=== PATIENT | male | born 1980 | race Caucasian/White ===

== ENCOUNTER 2017-08-03 11:07 | Emergency (ER) | payer MEDICAID ==
[~2017-08-03] VITALS: Ht 167.6 cm; Wt 71.7 kg
[~2017-08-03 11:07] MED LIST: COLACE100 MG PO; NOR10T PO; TASIGNA150 MG; TASIGNA150 MG PO
[2017-08-03 11:12] VITALS: Ht 167.6 cm; Wt 71.7 kg
[2017-08-03 12:43] LABS: PLATELET COUNT 99 x10^3mcL (130-400); RED CELL DISTRIBUTION WIDTH 16.9 % (11.5-14.5)
[2017-08-03 13:14] LABS: BAND NEUTROPHIL 27 % (0-10); BASOPHIL 0 % (0-2); BLAST 5 % (0); METAMYELOCTE 15 % (0-2); MONOCYTE 4 % (0-7); MYELOCYTE 6 % (0-2); SEGMENTED NEUTROPHILS 35 % (37-75)
[2017-08-03 13:16] LABS: PLATELET MORPHOLOGY PLATELETS DECREASED; rbc morphology (normal/abnorm) ABNORMAL (NORMAL)
[2017-08-03 13:19] VITALS: BP 164/98
[2017-08-03 15:04] LABS: CALCIUM 8.8 mg/dL (8.5-10.1); CARBON DIOXIDE 21.6 mmol/L (21-32); CHLORIDE SERUM 102 mmol/L (98-107); CREATININE SERUM 0.9 mg/dL (0.7-1.3); GFR1 > 60 mL/min; GLUCOSE SERUM 106 mg/dL (74-106); POTASSIUM SERUM 3.9 mmol/L (3.5-5.1); SODIUM SERUM 139 mmol/L (136-145)
[2017-08-03 15:19] LABS: ALBUMIN 4.1 g/dL (3.4-5.0); ALKALINE PHOSPHATASE 84 U/L (46-116); ALT/SGPT 60 U/L (16-63); AST/SGOT 86 U/L (15-37); BILIRUBIN TOTAL 0.48 mg/dL (0.20-1.00); TOTAL PROTEIN, SERUM 8.4 g/dL (6.4-8.2)
== END 2017-08-03 13:19 | disposition home or self-care (01) ==
LOC: ED 11:07
PROVIDERS: Emergency Medicine
DX: M25.562 Pain in left knee (principal)
CPT/HCPCS: 36415; 85060; J1885; Q0092

== ENCOUNTER 2017-08-06 12:16 | Emergency (ER) | payer MEDICAID ==
[~2017-08-06] VITALS: Ht 167.6 cm; Wt 72.6 kg
[2017-08-06 12:26] VITALS: Ht 167.6 cm; Wt 72.6 kg
[2017-08-06 13:26] VITALS: BP 150/82
== END 2017-08-06 13:26 | disposition home or self-care (01) ==
LOC: ED 12:16
DX: M79.605 Pain in left leg (principal)

== ENCOUNTER 2017-10-30 15:04 | Emergency (ER) | payer MEDICAID ==
[~2017-10-30] VITALS: Ht 167.6 cm; Wt 75.7 kg
[2017-10-30 15:09] VITALS: Ht 167.6 cm; Wt 75.7 kg
[2017-10-30 16:47] LABS: PLATELET COUNT 134 x10^3mcL (130-400)
[2017-10-30 16:49] LABS: microscopic required? YES; urine erythrocyte TRACE (NEGATIVE)
[2017-10-30 16:55] LABS: RED CELL DISTRIBUTION WIDTH 17.6 % (11.5-14.5)
[2017-10-30 17:08] LABS: CALCIUM 8.7 mg/dL (8.5-10.1); CARBON DIOXIDE 28.2 mmol/L (21-32); CHLORIDE SERUM 101 mmol/L (98-107); CREATININE SERUM 0.9 mg/dL (0.7-1.3); GFR1 > 60 mL/min; GLUCOSE SERUM 85 mg/dL (74-106); POTASSIUM SERUM 3.5 mmol/L (3.5-5.1); SODIUM SERUM 139 mmol/L (136-145)
[2017-10-30 17:12] LABS: ALBUMIN 3.7 g/dL (3.4-5.0); ALKALINE PHOSPHATASE 106 U/L (46-116); ALT/SGPT 53 U/L (16-63); AMYLASE 46 U/L (25-115); AST/SGOT 52 U/L (15-37); BILIRUBIN TOTAL 0.46 mg/dL (0.20-1.00); LIPASE 101 IU/L (73-393)
[2017-10-30 17:13] LABS: TOTAL PROTEIN, SERUM 8.4 g/dL (6.4-8.2)
[2017-10-30 18:31] LABS: BAND NEUTROPHIL 20 % (0-10); BASOPHIL 0 % (0-2); BLAST 3 % (0); METAMYELOCTE 27 % (0-2); MONOCYTE 1 % (0-7); MYELOCYTE 12 % (0-2); PLATELET MORPHOLOGY PLATELETS NORMAL; SEGMENTED NEUTROPHILS 28 % (37-75); rbc morphology (normal/abnorm) ABNORMAL (NORMAL)
[2017-10-30 18:53] LABS: PATH REVIEW for HEMA YES
[2017-10-30 18:54] VITALS: BP 135/85
== END 2017-10-30 18:54 | disposition home or self-care (01) ==
LOC: ED 15:04
PROVIDERS: Emergency Medicine
DX: R10.9 Unspecified abdominal pain (principal); M54.9 Dorsalgia, unspecified
CPT/HCPCS: 83880; J2405; J3010

== ENCOUNTER 2019-04-05 14:08 | Emergency (ER) | payer MEDICAID ==
[~2019-04-05] VITALS: Ht 162.6 cm; Wt 69.4 kg
[2019-04-05 14:11] VITALS: Ht 162.6 cm; Wt 69.4 kg
[2019-04-05 15:02] LABS: CALCIUM 8.1 mg/dL (8.5-10.1); CARBON DIOXIDE 28.1 mmol/L (21-32); CHLORIDE SERUM 101 mmol/L (98-107); CREATININE SERUM 1.1 mg/dL (0.7-1.3); GFR1 > 60 mL/min; GLUCOSE SERUM 120 mg/dL (74-106); POTASSIUM SERUM 3.7 mmol/L (3.5-5.1); SODIUM SERUM 137 mmol/L (136-145)
[2019-04-05 15:06] LABS: ALKALINE PHOSPHATASE 91 U/L (46-116); ALT/SGPT 20 U/L (16-63); AST/SGOT 27 U/L (15-37); BILIRUBIN TOTAL 0.3 mg/dL (0.20-1.00); LIPASE 62 IU/L (73-393); TOTAL PROTEIN, SERUM 7.5 g/dL (6.4-8.2)
[2019-04-05 15:28] LABS: PLATELET COUNT 413 x10^3mcL (130-400); RED CELL DISTRIBUTION WIDTH 17.8 % (11.5-14.5)
[2019-04-05 15:46] LABS: BAND NEUTROPHIL 10 % (0-10); BLAST 3 % (0); METAMYELOCTE 22 % (0-2); MONOCYTE 1 % (0-7); MYELOCYTE 29 % (0-2); PATH REVIEW for HEMA YES; PLATELET MORPHOLOGY PLATELETS NORMAL; PROMYELOCYTE 5 % (0-0); SEGMENTED NEUTROPHILS 25 % (37-75); rbc morphology (normal/abnorm) ABNORMAL (NORMAL); tear drop cell (dacryocyte) 1+
[2019-04-05 16:33] VITALS: BP 110/60
== END 2019-04-05 16:33 | disposition home or self-care (01) ==
LOC: ED 14:08
PROVIDERS: Emergency Medicine
DX: R16.1 Splenomegaly, not elsewhere classified (principal); Z85.6 Personal history of leukemia
CPT/HCPCS: 85060; J2270; J2405; J7030

== ENCOUNTER 2019-08-18 20:48 | Inpatient (IN) | payer MEDICAID ==
[~2019-08-18] VITALS: Ht 167.6 cm; Wt 68.0 kg
[2019-08-18 22:46] LABS: PLATELET COUNT 402 x10^3mcL (130-400); RED CELL DISTRIBUTION WIDTH 18.3 % (11.5-14.5)
[2019-08-18 22:57] LABS: CARBON DIOXIDE 30.3 mmol/L (21-32); CHLORIDE SERUM 98 mmol/L (98-107); GFR1 > 60 mL/min; GLUCOSE SERUM 115 mg/dL (74-106); POTASSIUM SERUM 3.9 mmol/L (3.5-5.1); SODIUM SERUM 135 mmol/L (136-145)
[2019-08-18 23:02] LABS: ALKALINE PHOSPHATASE 94 U/L (46-116); ALT/SGPT 15 U/L (16-63); AST/SGOT 18 U/L (15-37); BILIRUBIN TOTAL 0.5 mg/dL (0.20-1.00); TOTAL PROTEIN, SERUM 6.9 g/dL (6.4-8.2)
[2019-08-18 23:03] LABS: ALBUMIN 2.6 g/dL (3.4-5.0)
[2019-08-18 23:15] LABS: BAND NEUTROPHIL 5 % (0-10); BASOPHIL 0 % (0-2); MONOCYTE 6 % (0-7); SEGMENTED NEUTROPHILS 83 % (37-75)
[2019-08-18 23:16] LABS: PLATELET MORPHOLOGY PLATELETS INCREASED; rbc morphology (normal/abnorm) NORMAL (NORMAL)
[2019-08-19] MEDS ORDERED: [UNRECOGNIZED DRUG - OTHER] PO (00:49)
[2019-08-19 01:56] LABS: microscopic required? YES; urine erythrocyte NEGATIVE (NEGATIVE)
[2019-08-19 02:14] VITALS: BP 144/95
[2019-08-19 02:16] LABS: AMPHETAMINE QUAL UR POSITIVE (See below)
[2019-08-19 02:38] LABS: CHOLESTEROL/HDL RATIO 5.7
[2019-08-19 05:37] VITALS: BP 140/95
[2019-08-19 06:50] LABS: PLATELET COUNT 390 x10^3mcL (130-400)
[2019-08-19 06:58] LABS: RED CELL DISTRIBUTION WIDTH 18.3 % (11.5-14.5)
[2019-08-19 07:11] LABS: T3 TOTAL 0.95 ng/mL
[2019-08-19 07:14] LABS: CARBON DIOXIDE 29.8 mmol/L (21-32); CHLORIDE SERUM 99 mmol/L (98-107); CREATININE SERUM 0.9 mg/dL (0.7-1.3); GFR1 > 60 mL/min; GLUCOSE SERUM 103 mg/dL (74-106); POTASSIUM SERUM 4.1 mmol/L (3.5-5.1); SODIUM SERUM 136 mmol/L (136-145)
[2019-08-19 07:27] VITALS: BP 152/100
[2019-08-19 07:35] LABS: FREE T4 1.46 ng/dL (0.76-1.46); FREE THYROXINE INDEX 3.5 ug/dL (1.4-4.5); T4(THYROXINE) 7.7 ug/dL (4.7-13.3)
[2019-08-19 08:13] LABS: BAND NEUTROPHIL 5 % (0-10); BASOPHIL 0 % (0-2); MONOCYTE 6 % (0-7); MYELOCYTE 3 % (0-2); SEGMENTED NEUTROPHILS 79 % (37-75)
[2019-08-19 08:14] LABS: PLATELET MORPHOLOGY PLATELETS NORMAL; rbc morphology (normal/abnorm) ABNORMAL (NORMAL)
[2019-08-19 11:37] LABS: APPEARANCE FLUID HAZY; SOURCE FLUID PLEURAL
[2019-08-19 11:38] LABS: COLOR FLUID RED; WBC FLUID 8960 /cumm
[2019-08-19 11:39] LABS: LYMPHOCYTE FLUID 45 %; MONOCYTE FLUID 5 %; RBC FLUID 39550 /cumm
[2019-08-19 11:50] VITALS: BP 135/84
[2019-08-19 16:21] VITALS: BP 140/85
[2019-08-19 20:45] VITALS: BP 129/77
[2019-08-20 05:20] VITALS: BP 149/91
[2019-08-20 06:31] LABS: PLATELET COUNT 368 x10^3mcL (130-400)
[2019-08-20 06:47] LABS: CALCIUM 8.1 mg/dL (8.5-10.1); CARBON DIOXIDE 29.8 mmol/L (21-32); CHLORIDE SERUM 101 mmol/L (98-107); CREATININE SERUM 0.8 mg/dL (0.7-1.3); GFR1 > 60 mL/min; GLUCOSE SERUM 106 mg/dL (74-106); PHOSPHOROUS 4.2 mg/dL (2.5-4.9); SODIUM SERUM 137 mmol/L (136-145)
[2019-08-20 06:55] LABS: RED CELL DISTRIBUTION WIDTH 18.2 % (11.5-14.5)
[2019-08-20 07:46] VITALS: BP 143/87
[2019-08-20 11:41] VITALS: BP 146/89
[2019-08-20 11:46] LABS: BAND NEUTROPHIL 3 % (0-10); BASOPHIL 0 % (0-2); MONOCYTE 7 % (0-7); SEGMENTED NEUTROPHILS 89 % (37-75)
[2019-08-20 11:47] LABS: rbc morphology (normal/abnorm) ABNORMAL (NORMAL)
[2019-08-20 14:02] VITALS: Ht 167.6 cm; Wt 68.0 kg
[2019-08-20 15:36] VITALS: BP 146/89
== END 2019-08-20 18:05 | disposition home or self-care (01) | DRG 136 ==
LOC: ED 20:48 → MU 08-19 00:37
PROVIDERS: Emergency Medicine; ADMIT Family Medicine
PROC: 0W9B3ZZ Drainage of Left Pleural Cavity, Percutaneous Approach (ICD-10-PCS; principal; 2019-08-19)
PROC: 0W9B3ZZ Drainage of Left Pleural Cavity, Percutaneous Approach (ICD-10-PCS; 2019-08-19)
DX: J91.0 Malignant pleural effusion (principal); N17.0 Acute kidney failure with tubular necrosis; R16.1 Splenomegaly, not elsewhere classified; C92.10 Chronic myeloid leukemia, BCR/ABL-positive, not having achieved remission; R59.0 Localized enlarged lymph nodes; K59.00 Constipation, unspecified; D63.0 Anemia in neoplastic disease; F15.188 Other stimulant abuse with other stimulant-induced disorder; F12.188 Cannabis abuse with other cannabis-induced disorder; Z22.322 Carrier or suspected carrier of Methicillin resistant Staphylococcus aureus; Z82.49 Family history of ischemic heart disease and other diseases of the circulatory system; Z68.24 Body mass index [BMI] 24.0-24.9, adult; Z83.3 Family history of diabetes mellitus; Z80.9 Family history of malignant neoplasm, unspecified
CPT/HCPCS: 32555; 83880; 84439; 85060; 87116; 87206; C1729; G0378; J0696; J2001; J2405; J7030; J7060; Q0092